=== PATIENT | female | born 1960 | race Two or more races ===

== ENCOUNTER 2018-01-01 14:52 | Inpatient (IN) | payer OTHER, SELFPAY ==
[~2018-01-01] VITALS: Ht 165.1 cm; Wt 91.0 kg
[2018-01-01] MEDS ORDERED: ASPIRIN 81 MG TABLET CHEW PO ONE (15:30)
[2018-01-01] MEDS ORDERED: NITROGLYCERIN SINGLE TAB 0.4 MG SL PRN (15:30)
[2018-01-01 15:35] LABS: BASOPHILS # (AUTO) 0.07 x10^3/uL (0-0.1); BASOPHILS % (AUTO) 1 % (0-1); EOSINOPHILS # (AUTO) 0.24 x10^3/uL (0-0.4); EOSINOPHILS % (AUTO) 3 % (1-7); LYMPHOCYTES # (AUTO) 2.53 x10^3/uL (1-3.4); LYMPHOCYTES % (AUTO) 29 % (22-44); MD NO; MEAN CORPUSCULAR HEMOGLOBIN 27.7 pg (27.0-34.8); MEAN CORPUSCULAR HGB CONC 33.8 g/dL (32.4-35.8); MEAN CORPUSCULAR VOLUME 82.1 fL (80-100); MEAN PLATELET VOLUME 8.9 fL (7.4-10.4); MONOCYTES # (AUTO) 0.67 x10^3/uL (0.2-0.8); MONOCYTES % (AUTO) 8 % (2-9); NEUTROPHILS # (AUTO) 5.25 x10^3/uL (1.8-6.8); NEUTROPHILS % (AUTO) 60 % (42-75); PLATELET COUNT 181 x10^3/uL (130-400); RED BLOOD COUNT 5.13 x10^6/uL (3.82-5.3); RED CELL DISTRIBUTION WIDTH 13.2 % (9.6-15.2)
[2018-01-01 15:45] LABS: ALBUMIN 3.8 g/dL (3.4-5.0); ANION GAP 8 mmol/L (5-15); CALCIUM 8.4 mg/dL (8.5-10.1); CHLORIDE 106 mmol/L (98-107); CREATININE 1.08 mg/dL (0.55-1.02)
[2018-01-01 15:52] LABS: TROPONIN I < 0.015 ng/mL (0.000-0.045)
[2018-01-01] MEDS ORDERED: ASPIRIN 81 MG TABLET CHEW ONE (15:59)
[2018-01-01] MEDS ORDERED: NITROGLYCERIN SINGLE TAB 0.4 MG SL ONE (16:00)
[2018-01-01 19:30] VITALS: BP 122/75
[2018-01-01] MEDS ORDERED: NITROGLYCERIN 0.4 MG BOTTLE (25 TABS) SL PRN (19:30)
[2018-01-01] MEDS ORDERED: hydrALAzine 20 MG/ML, 1ML IVPush PRN (19:30)
[2018-01-01] MEDS ORDERED: TEMAZEPAM 15 MG CAPSULE PO PRN (19:30)
[2018-01-01] MEDS ORDERED: DOCUSATE 100 MG CAPSULE PO PRN (19:30)
[2018-01-01] MEDS ORDERED: ONDANSETRON ODT 4 MG PO PRN (19:30)
[2018-01-01] MEDS ORDERED: ACETAMINOPHEN 325 MG TABLET PO PRN (19:30)
[2018-01-01] MEDS ORDERED: ENOXAPARIN 40 MG/0.4 ML SQ SCH (19:30)
[2018-01-01 19:45] VITALS: BP 122/75
[2018-01-01 21:42] LABS: TROPONIN I < 0.015 ng/mL (0.000-0.045)
[2018-01-02 01:49] VITALS: BP 106/73
[2018-01-02 04:17] LABS: CHOL/HDL RATIO 3.5; CHOLESTEROL, TOTAL 173 mg/dL (140-239); HDL CHOL % 28 % (28-40); HDL CHOLESTEROL (DIRECT) 49 mg/dL (40-60); LDL CHOLESTEROL,CALCULATED 75 mg/dL (54-169); LDL/HDL RATIO 1.5 (0.5-3.0); TRIGLYCERIDES 246 mg/dL (50-200); TROPONIN I < 0.015 ng/mL (0.000-0.045); VLDL CHOLESTEROL 49 mg/dL (0-25)
[2018-01-02 07:30] VITALS: BP 98/61
[2018-01-02] MEDS ORDERED: MAALOX/HYOSCYAMINE/LIDOCAINE 45 ML BTL PO ONE (08:30)
[2018-01-02] MEDS ORDERED: ASPIRIN 325 MG TABLET PO SCH (08:30)
[2018-01-02] MEDS ORDERED: REGADENOSON 0.4 MG/5 ML SYRINGE ONE (09:17)
[2018-01-02] MEDS ORDERED: CIPROFLOXACIN DEXAMETHASONE EAR SUSP 7.5ML LEFT EAR SCH (11:30)
[2018-01-02] MEDS ORDERED: CIPR7.5D LEFT EAR (13:47)
== END 2018-01-02 14:46 | disposition home or self-care (01) | DRG 103 ==
LOC: ED 16:19 → EDIP 17:29 → 5SO 18:08 → DCLOUNGE 01-02 14:11
PROVIDERS: ADMIT Hospitalist; ATTEND Hospitalist
DX: G43.909 Migraine, unspecified, not intractable, without status migrainosus (principal); H60.92 Unspecified otitis externa, left ear; E66.9 Obesity, unspecified; I27.20 Pulmonary hypertension, unspecified; J45.909 Unspecified asthma, uncomplicated; K21.9 Gastro-esophageal reflux disease without esophagitis; R73.9 Hyperglycemia, unspecified; R94.31 Abnormal electrocardiogram [ECG] [EKG]; R07.9 Chest pain, unspecified; Z80.6 Family history of leukemia; Z86.711 Personal history of pulmonary embolism; Z86.718 Personal history of other venous thrombosis and embolism; Q21.9 Congenital malformation of cardiac septum, unspecified
CPT/HCPCS: 36415; 70450; 71045; 78452; 80048; 80061; 82040; 83036; 83735; 83880; 84484; 85025; 85379; 93005; 93017; 99285; G0378; J1650; J2785; Q0162; A9502; C9898